=== PATIENT | male | born 1945 | race Caucasian/White ===

== ENCOUNTER 2016-11-14 13:17 | Inpatient (IN) | payer OTHER ==
[~2016-11-14] VITALS: Ht 185.4 cm; Wt 93.9 kg
[~2016-11-14 13:17] MED LIST: LRT5 PO
[2016-11-14] MEDS ORDERED: SODIUM CHLORIDE 0.9% 1000ML 1,000 ML IV STA (13:26)
[2016-11-14] MEDS ORDERED: ONDANSETRON INJ 2 MG/ML 2 ML VIAL IV STA (13:26)
[2016-11-14] MEDS ORDERED: MoRPHine SULFATE 4 MG/ML 1 ML CARP\\VIAL IV PRN (13:30)
--- NOTE | 2016-11-14 13:38 | EMERGENCY ROOM VISIT NOTE ---
History Report prepared by Lg: Gerardo Cabrales Under the Supervision of: Dr. Elpidio Russell D.O. First contact with patient: 13:20 Stated Complaint: FALL/ LF HIP PAIN History of Present Illness The patient is a 71 year old male who presents to the Emergency Room with complaints of left hip pain that began [employer]. He rates his pain a 2/10 in severity. At this time, the patient was climbing a ladder while balancing a light fixture on his head. He did this because he does not have full use of his right arm because of an injury at . He missed the second step of the ladder and fell horizontally onto his left side. He did not lose consciousness or hit his head. He denies any chest pain, neck pain, abdominal pain, back pain , head pain, or leg pain. He received 10 mg Morphine en route which helped his pain. Source of History: patient Onset: [employer] Position: other (Left hip) Symptom Intensity: 2/10 Quality: ache Timing: constant Modifying Factors (Worsening): movement Associated Symptoms: No LOC, No headache, No neck pain, No chest pain, No abdominal pain, No back pain Review of Systems See HPI for pertinent positives & negatives. A total of 10 systems reviewed and were otherwise negative. Past Medical & Surgical Medical Problems: (1) Hip fracture, left (2) No Known Active Medical Problems Family History Omitted secondary to the patient's age. Social History Smoking Status: Never Smoker Smokeless Tobacco Use: No Alcohol Use: occasionally Drug Use: none Marital Status: Housing Status: lives with significant other Occupation Status: retired Current/Historical Medications No Active Prescriptions or Reported Meds Allergies Coded Allergies: Oxycodone (Unverified Allergy, Unknown, neasua, trouble breathing, 11/14/16 ) Uncoded Allergies: NKDA (Allergy, Unknown, 09/23/04) Physical Exam Vital Signs Date Time Temp Pulse Resp B/P (MAP) Pulse Ox O2 Delivery O2 Flow Rate FiO2 11/14/16 15:25 72 152/87 Room Air 11/14/16 15:00 100 Room Air 11/14/16 13:50 70 150/84 100 11/14/16 13:23 36.6 79 18 150/84 100 Room Air Physical Exam GENERAL: Patient is awake, alert, and appears to be in significant pain. Patient is uncomfortably and showing moderate signs of anxiety. EYES: The conjunctivae are clear. The pupils are round and reactive. EARS, NOSE, MOUTH AND THROAT: The nose is without any evidence of any deformity. Mucous membranes are moist tongue is midline NECK: The neck is nontender and supple. RESPIRATORY: Normal respiratory effort is noted there is no evidence of wheezing rhonchi or rales CARDIOVASCULAR: Regular rate and rhythm noted there no murmurs rubs or gallops normal S1 normal S2 GASTROINTESTINAL: The abdomen is soft. Bowel sounds are present in all quadrants. Abdomen is nontender PELVIS: The Pelvis is stable. No tenderness to palpation is noted. BACK: No midline tenderness or or step-off noted range of motion in flexion extension as well as rotation no signs of muscle spasm noted MUSCULOSKELETAL/EXTREMITIES: LLE is shorted but not significantly rotated. Pain with any ROM with left hip. SKIN: There is no obvious evidence of any rash. There are no petechiae, pallor or cyanosis noted. Pulses symmetric, no pedal edema noted. NEUROLOGIC: Patient is awake alert and oriented x3. Medical Decision & Procedures ER Provider Diagnostic Interpretation: Radiology results as stated below per my review and radiologist interpretation: LEFT PELVIS/UNILATERAL HIP 2-3VIEWS CLINICAL HISTORY: Left hip pain following fall. COMPARISON: None FINDINGS: There is an acute comminuted impacted displaced left femoral neck fracture. There is no fracture of the proximal right femur. Sacroiliac joints and symphysis pubis are intact. IMPRESSION: Acute impacted displaced left femoral neck fracture. Electronically signed by: Juan C Dacosta M.D. 11/14/2016 2:38 PM Dictated Date/Time: 11/14/2016 2:37 PM CHEST 1 VW FRONT-NOT PORTABLE CLINICAL HISTORY: Fall. Left hip pain. COMPARISON STUDY: No previous studies for comparison. FINDINGS: There is no pneumothorax or pleural effusion. Pulmonary vascularity is normal. Cardiomediastinal silhouette is unremarkable. No consolidation is identified. IMPRESSION: No acute cardiopulmonary findings. Electronically signed by: Juan C Dacosta M.D. 11/14/2016 2:36 PM Dictated Date/Time: 11/14/2016 2:35 PM Laboratory Results 11/14/16 13:36 Red Blood Count 4.66, Mean Corpuscular Volume 88.8, Mean Corpuscular Hemoglobin 32.0, Mean Corpuscular Hemoglobin Concent 36.0, Mean Platelet Volume 9.3, Neutrophils (%) (Auto) 63.6, Lymphocytes (%) (Auto) 28.8, Monocytes (%) (Auto) 4.7, Eosinophils (%) (Auto) 2.1, Basophils (%) (Auto) 0.6, Neutrophils # (Auto) 4.17, Lymphocytes # (Auto) 1.89, Monocytes # (Auto) 0.31, Eosinophils # (Auto) 0.14, Basophils # (Auto) 0.04 11/14/16 13:36 Test 11/14/16 13:36 White Blood Count 6.56 K/uL (4.8-10.8) Red Blood Count 4.66 M/uL (4.7-6.1) Hemoglobin 14.9 g/dL (14.0-18.0) Hematocrit 41.4 % (42-52) Mean Corpuscular Volume 88.8 fL (80-100) Mean Corpuscular Hemoglobin 32.0 pg (25-34) Mean Corpuscular Hemoglobin Concent 36.0 g/dl (32-36) Platelet Count 217 K/uL (130-400) Mean Platelet Volume 9.3 fL (7.4-10.4) Neutrophils (%) (Auto) 63.6 % Lymphocytes (%) (Auto) 28.8 % Monocytes (%) (Auto) 4.7 % Eosinophils (%) (Auto) 2.1 % Basophils (%) (Auto) 0.6 % Neutrophils # (Auto) 4.17 K/uL (1.4-6.5) Lymphocytes # (Auto) 1.89 K/uL (1.2-3.4) Monocytes # (Auto) 0.31 K/uL (0.11-0.59) Eosinophils # (Auto) 0.14 K/uL (0-0.5) Basophils # (Auto) 0.04 K/uL (0-0.2) RDW Standard Deviation 41.1 fL (36.4-46.3) RDW Coefficient of Variation 12.8 % (11.5-14.5) Immature Granulocyte % (Auto) 0.2 % Immature Granulocyte # (Auto) 0.01 K/uL (0.00-0.02) Prothrombin Time 10.8 SECONDS (9.0-12.0) Prothromb Time International Ratio 1.0 (0.9-1.1) Activated Partial Thromboplast Time 25.0 SECONDS (21.0-31.0) Partial Thromboplastin Ratio 1.0 Anion Gap 8.0 mmol/L (3-11) Est Creatinine Clear Calc Drug Dose 80.1 ml/min Estimated GFR () 91.3 Estimated GFR (Non- 78.8 BUN/Creatinine Ratio 13.6 (10-20) Calcium Level 9.0 mg/dl (8.5-10.1) Total Bilirubin 0.9 mg/dl (0.2-1) Direct Bilirubin 0.2 mg/dl (0-0.2) Aspartate Amino Transf (AST/SGOT) 42 U/L (15-37) Alanine Aminotransferase (ALT/SGPT) 57 U/L (12-78) Alkaline Phosphatase 70 U/L (45-117) Troponin I < 0.015 ng/ml (0-0.045) Total Protein 7.1 gm/dl (6.4-8.2) Albumin 4.0 gm/dl (3.4-5.0) Hepatitis C Antibody Screen NEG (NEG) Laboratory results per my review. Medications Administered Medications (Trade) Dose Ordered Sig/Deb Route Start Time Stop Time Status Last Admin Dose Admin Sodium Chloride 1,000 ml @ 999 mls/hr Q1H1M STAT IV 11/14/16 13:26 11/14/16 14:26 DC 11/14/16 13:52 999 MLS/HR Morphine Sulfate (MoRPHine SULFATE INJ) 4 mg Q15M PRN IV 11/14/16 13:30 11/28/16 13:29 11/14/16 13:53 4 MG Ondansetron HCl (Zofran Inj) 4 mg NOW STAT IV 11/14/16 13:26 11/14/16 13:29 DC 11/14/16 13:52 4 MG ECG Indication: other (Trauma) Rate (beats per minute): 73 Rhythm: normal sinus Findings: no ectopy, other (no acute STS) Comparison ECG Date: no prior available ED Course 1320: The patient was evaluated in room A9. A complete history and physical examination were performed. 1326: Ordered Zofran Inj 4 mg IV, NSS 1,000 ml @ 999 mls/hr IV 1330: Ordered Morphine Sulfate 4 mg IV 1435: Upon reevaluation, the patient is resting. I discussed results and treatment plan with him. He verbalizes agreement and understanding. [facility] The patient will be evaluated by him for further management and care. 1513: I spoke with Dr. Hayward of [facility] at this time. We discussed the patient's case. He will evaluate the patient with Dr. Stevens. Medical Decision Differential diagnosis: Etiologies such as fracture, dislocation, intra-abdominal, pneumothorax, intrathoracic , intracranial, neurologic, as well as other traumatic pathologies were entertained. Nursing notes reviewed. The patient is a 71-year-old male who presented to emergency department for an evaluation after a fall. The patient suffered a left hip fracture. He was treated with IV fluids IV pain medicine IV antiemetics. I discussed the patient' s laboratory and radiographic studies with him. On subsequent reevaluation he was feeling somewhat improved. I discussed the patient's case with the on-call [facility]ist. I also discussed his case with the orthopedic physician of his choice. They've agreed to evaluate the patient for further management and disposition. Likely the patient will require surgical intervention. Medication Reconcilliation Current Medication List: was personally reviewed by me Blood Pressure Screening Patient's blood pressure: Elevated blood pressure Blood pressure disposition: Elevated BP felt to be situational Consults Time Called: 1430 Consulting Physician: Dr. Stevens - [facility] Returned Call: 1435 I discussed the patient's case with him. The patient will be evaluated for further management. Additional Consults: Time Called: 1510 Consulted Physician: Dr. Hayward - [facility] Returned Call: 1513 Additional Comments: We discussed the patient's case. He will evaluate the patient with Dr. Stevens. Impression Primary Impression: Fall Additional Impression: Intertrochanteric fracture of left hip Scribe Attestation The scribe's documentation has been prepared under my direction and personally reviewed by me in its entirety. I confirm that the note above accurately reflects all work, treatment, procedures, and medical decision making performed by me. Departure Information Dispostion Being Evaluated By Hospitalist Prescriptions No Active Prescriptions or Reported Meds Referrals No Doctor, Assigned (PCP) Problem Qualifiers Primary Impression: Fall Encounter type: initial encounter Qualified Codes: W19.XXXA - Unspecified fall, initial encounter Additional Impression: Intertrochanteric fracture of left hip Encounter type: initial encounter Fracture type: closed Fracture alignment : displaced Qualified Codes: S72.142A - Displaced intertrochanteric fracture of left femur, initial encounter for closed fracture
[2016-11-14 13:57] LABS: BASO % 0.6 %; BASO ABS # 0.04 K/uL (0-0.2); COMPLETE YES; EOS % 2.1 %; HEMATOCRIT 41.4 % (42-52); IG% 0.2 %; LYMPH % 28.8 %; LYMPH ABS # 1.89 K/uL (1.2-3.4); MEAN CELL VOLUME 88.8 fL (80-100); MEAN PLATELET VOLUME 9.3 fL (7.4-10.4); MONO % 4.7 %; NEUT % 63.6 %; PLATELET COUNT 217 K/uL (130-400); RED BLOOD COUNT 4.66 M/uL (4.7-6.1); WHITE BLOOD COUNT 6.56 K/uL (4.8-10.8)
[2016-11-14 14:14] LABS: PROTHROMBIN TIME (PATIENT) 10.8 SECONDS (9.0-12.0)
[2016-11-14 14:16] LABS: BUN/CREATININE RATIO 13.6 (10-20); CREATININE 0.97 mg/dl (0.60-1.40); POTASSIUM 3.9 mmol/L (3.5-5.1)
[2016-11-14 14:31] LABS: ALKALINE PHOSPHATASE 70 U/L (45-117); ALT/SGPT 57 U/L (12-78); AST/SGOT 42 U/L (15-37)
--- NOTE | 2016-11-14 14:38 | DIAGNOSTIC IMAGING REPORT ---
CHEST 1 VW FRONT-NOT PORTABLE CLINICAL HISTORY: Fall. Left hip pain. COMPARISON STUDY: No previous studies for comparison. FINDINGS: There is no pneumothorax or pleural effusion. Pulmonary vascularity is normal. Cardiomediastinal silhouette is unremarkable. No consolidation is identified. IMPRESSION: No acute cardiopulmonary findings. Electronically signed by: Juan C Dacosta M.D. 11/14/2016 2:36 PM Dictated Date/Time: 11/14/2016 2:35 PM
--- NOTE | 2016-11-14 14:39 | DIAGNOSTIC IMAGING REPORT ---
LEFT PELVIS/UNILATERAL HIP 2-3VIEWS CLINICAL HISTORY: Left hip pain following fall. COMPARISON: None FINDINGS: There is an acute comminuted impacted displaced left femoral neck fracture. There is no fracture of the proximal right femur. Sacroiliac joints and symphysis pubis are intact. IMPRESSION: Acute impacted displaced left femoral neck fracture. Electronically signed by: Juan C Dacosta M.D. 11/14/2016 2:38 PM Dictated Date/Time: 11/14/2016 2:37 PM
[2016-11-14 15:00] VITALS: O2SAT 100; Ht 185.4 cm; Wt 93.9 kg
[2016-11-14 16:38] LABS: URINE APPEARANCE CLEAR (CLEAR); URINE BILIRUBIN NEG (NEG); URINE COLOR YELLOW; URINE NITRITE NEG (NEG); URINE PH 8.5 (4.5-7.5); URINE SPECIFIC GRAVITY 1.014 (1.000-1.030); UROBILINOGEN NEG (NEG); ZZUR CULT IF INDIC CLEAN CATCH NO
[2016-11-14 16:41] LABS: MANUAL MICROSCOPIC REQUIRED? NO; REVIEW REQ? NO
[2016-11-14 17:30] VITALS: BP 149/85; PULSE 69; TEMP 36.8; O2SAT 97
--- NOTE | 2016-11-14 19:22 | History and Physical ---
History & Physical Date & Time of Service: Nov 14, 2016 at 15:36 Chief Complaint: Fall/ Lf Hip Pain Primary Care Physician: No Doctor, Assigned History of Present Illness Source: patient, spouse, clinic records, hospital records 71 year old male with no significant PMH presents to the Emergency Room with complaints of left hip pain after he had a fall. Pt said that he fell while he was climbing a ladder with a balancing light fixture on his head. he said that because of an injury at he had a short right arm.He said that He missed the second step of the ladder and fell on his left side. he said that he was unable to get up because when he trying to move his left hip was very tender. he said that he waited for about an hr until EMS came to get him out of the floor. He did not lose consciousness or hit his head. Pt said that he is very active. he said that this morning he walked the dog. He denies any chest pain, neck pain, palpitation, dizziness, sob, back pain, head pain. Social History Smoking Status: Never Smoker Smokeless Tobacco Use: No Drug Use: none Marital Status: Occupational Status: retired Multi-Drug Resistant Organisms History of MDRO: No Allergies Coded Allergies: Oxycodone (Unverified Allergy, Unknown, neasua, trouble breathing, 11/14/16 ) Uncoded Allergies: NKDA (Allergy, Unknown, 09/23/04) Home Medications No Active Prescriptions or Reported Meds Review of Systems Constitutional: No fever, No chills Eyes: No worsening of vision, No redness, No discharge ENT: No nasal symptoms, No sore throat Respiratory: No sputum, No wheezing, No shortness of breath Cardiovascular: No chest pain, No orthopnea, No palpitations Abdomen: No pain, No nausea, No vomiting Musculoskeletal: + problem reported (Left hip pain), No calf pain Genitourinary - Male: No hematuria, No dysuria Neurologic: No memory loss, No numbness/tingling Psychiatric: No substance abuse Endocrine: No fatigue Hematologic / Lymphatic: No night sweats Integumentary: No rash, No itch Physical Exam Vital Signs Date Time Temp Pulse Resp B/P (MAP) Pulse Ox O2 Delivery O2 Flow Rate FiO2 11/14/16 13:23 36.6 79 18 150/84 100 Room Air General Appearance: WD/WN, no apparent distress Head: normocephalic, atraumatic Eyes: normal inspection, PERRL, EOMI ENT: hearing grossly normal Neck: no adenopathy, no JVD Respiratory/Chest: lungs clear, normal breath sounds, no respiratory distress Cardiovascular: regular rate, rhythm, no edema, no JVD Abdomen/GI: normal bowel sounds, non tender, soft Back: normal inspection, no CVA tenderness Extremities/Musculoskelatal: no calf tenderness, no pedal edema Neurologic/Psych: alert, normal mood/affect, oriented x 3 Skin: normal color, warm/dry, no rash Diagnostics Laboratory Results Results Past 24 Hours Test 11/14/16 13:36 11/14/16 15:17 Range/Units White Blood Count 6.56 4.8-10.8 K/uL Red Blood Count 4.66 4.7-6.1 M/uL Hemoglobin 14.9 14.0-18.0 g/dL Hematocrit 41.4 42-52 % Mean Corpuscular Volume 88.8 80-100 fL Mean Corpuscular Hemoglobin 32.0 25-34 pg Mean Corpuscular Hemoglobin Concent 36.0 32-36 g/dl Platelet Count 217 130-400 K/uL Mean Platelet Volume 9.3 7.4-10.4 fL Neutrophils (%) (Auto) 63.6 % Lymphocytes (%) (Auto) 28.8 % Monocytes (%) (Auto) 4.7 % Eosinophils (%) (Auto) 2.1 % Basophils (%) (Auto) 0.6 % Neutrophils # (Auto) 4.17 1.4-6.5 K/uL Lymphocytes # (Auto) 1.89 1.2-3.4 K/uL Monocytes # (Auto) 0.31 0.11-0.59 K/uL Eosinophils # (Auto) 0.14 0-0.5 K/uL Basophils # (Auto) 0.04 0-0.2 K/uL RDW Standard Deviation 41.1 36.4-46.3 fL RDW Coefficient of Variation 12.8 11.5-14.5 % Immature Granulocyte % (Auto) 0.2 % Immature Granulocyte # (Auto) 0.01 0.00-0.02 K/uL Prothrombin Time 10.8 9.0-12.0 SECONDS Prothromb Time International Ratio 1.0 0.9-1.1 Activated Partial Thromboplast Time 25.0 21.0-31.0 SECONDS Partial Thromboplastin Ratio 1.0 Sodium Level 139 136-145 mmol/L Potassium Level 3.9 3.5-5.1 mmol/L Chloride Level 109 98-107 mmol/L Carbon Dioxide Level 22 21-32 mmol/L Anion Gap 8.0 3-11 mmol/L Blood Urea Nitrogen 13 7-18 mg/dl Creatinine 0.97 0.60-1.40 mg/dl Est Creatinine Clear Calc Drug Dose 80.1 ml/min Estimated GFR () 91.3 Estimated GFR (Non- 78.8 BUN/Creatinine Ratio 13.6 10-20 Random Glucose 95 70-99 mg/dl Calcium Level 9.0 8.5-10.1 mg/dl Total Bilirubin 0.9 0.2-1 mg/dl Direct Bilirubin 0.2 0-0.2 mg/dl Aspartate Amino Transf (AST/SGOT) 42 15-37 U/L Alanine Aminotransferase (ALT/SGPT) 57 12-78 U/L Alkaline Phosphatase 70 45-117 U/L Troponin I < 0.015 0-0.045 ng/ml Total Protein 7.1 6.4-8.2 gm/dl Albumin 4.0 3.4-5.0 gm/dl Diagnostic Radiology CHEST 1 VW FRONT-NOT PORTABLE CLINICAL HISTORY: Fall. Left hip pain. COMPARISON STUDY: No previous studies for comparison. FINDINGS: There is no pneumothorax or pleural effusion. Pulmonary vascularity is normal. Cardiomediastinal silhouette is unremarkable. No consolidation is identified. IMPRESSION: No acute cardiopulmonary findings. Electronically signed by: Juan C Dacosta M.D. 11/14/2016 2:36 PM Dictated Date/Time: 11/14/2016 2:35 PM LEFT PELVIS/UNILATERAL HIP 2-3VIEWS CLINICAL HISTORY: Left hip pain following fall. COMPARISON: None FINDINGS: There is an acute comminuted impacted displaced left femoral neck fracture. There is no fracture of the proximal right femur. Sacroiliac joints and symphysis pubis are intact. IMPRESSION: Acute impacted displaced left femoral neck fracture. Electronically signed by: Juan C Dacosta M.D. 11/14/2016 2:38 PM Impression Assessment and Plan Left Femoral Neck Fracture S/P Mechanical Fall Left Hip Xray showed acute impacted displaced left femoral neck fracture Pain control with morphine case discussed with Dr. Hayward that plan for hip surgery tomorrow Pt said that he is very active. PT has a functional status with a METS greater than a 4. Will undergo an intermediate risk procedure Denies any chest pain, palpitation, dizziness and SOB Pt is medically stable to proceed for surgery. risks briefly discussed with patient such as blood loss, infection, thrombosis, sepsis and even Surgical risks will be discussed in detail by the orthopedic surgeon Will keep NPO after Midnight DVT Px on SCDS CODE STATUS FULL CODE Level of Care Med/Surg Advanced Directives Existing Living Will: Yes Existing Power of Pet Caregiver: Yes VTE Prophylaxis VTE Risk Assessment Done? Y/N: Yes Risk Level: Moderate Given or contraindicated: SCD's
[2016-11-14] MEDS: MoRPHine SULFATE 4 MG/ML 1 ML CARP\\VIAL IV PRN (20:55)
[2016-11-14 22:50] VITALS: BP 109/69; PULSE 76; TEMP 37.2; O2SAT 96
[2016-11-14] MEDS: ACETAMINOPHEN 325 MG TAB PO PRN (23:45)
[2016-11-15] VITALS (8 sets, daily range): BP systolic 112–135; BP diastolic 69–86; PULSE 56–76; TEMP 36.4–37.3; O2SAT 95–99
[2016-11-15] MEDS: MoRPHine SULFATE 4 MG/ML 1 ML CARP\\VIAL IV PRN ×3 (01:06→09:57)
--- NOTE | 2016-11-15 09:15 | ORTHOPEDIC CONSULTATION ---
DATE OF CONSULTATION: 11/15/2016 CHIEF COMPLAINT: Left femoral neck fracture. HISTORY OF PRESENT ILLNESS: Abdulkadir is a pleasant 71-year-old male who lives in a house with his . He is an independent ambulator and yesterday he was up on a ladder, fixing a light bulb when he fell off the ladder onto his left hip. He had severe left hip pain. EMS came to the house and brought to the Emergency Room. Radiographs demonstrated a left femoral neck fracture. He was admitted to the hospitalist service. Orthopedics was consulted to evaluate and treat. PAST MEDICAL HISTORY: Denies. PAST SURGICAL HISTORY: None. ALLERGIES: OXYCODONE. FAMILY HISTORY: Noncontributory. SOCIAL HISTORY: He is , is an independent ambulator without assistance. REVIEW OF SYSTEMS: He complains of left hip and groin pain. All other pertinent review of systems are negative. PHYSICAL EXAMINATION: LEFT LEG: His left leg is shortened and externally rotated. He has a lot of pain with log roll of his left hip. He has active dorsiflexion and plantarflexion of his ankle. Sensation is intact. There are no abrasions, lesions, lacerations around the skin. X-rays are reviewed, do show a low femoral neck fracture. He seems to extend a little bit into the intertrochanteric region. IMPRESSION: Left femoral neck fracture. PLAN: I talked with him extensively at bedside. This is a fracture that is best treated with a hip hemiarthroplasty. I discussed the procedure with him at bedside today. He is currently n.p.o. and we will go ahead and fix his hip later this morning. He will likely be started on aspirin for DVT prophylaxis postoperatively and we will follow him closely.
[2016-11-15] MEDS ORDERED: SODIUM CHLORIDE 0.9% 1000ML 1,000 ML IV SCH (10:00)
[2016-11-15] MEDS ORDERED: BACITRACIN 50000 UNIT VIAL ONE (10:14)
[2016-11-15] MEDS ORDERED: HYDROmorphone INJ 1 MG/ML SYR IV PRN (10:15)
[2016-11-15] MEDS ORDERED: ONDANSETRON INJ 2 MG/ML 2 ML VIAL IV PRN (10:15)
[2016-11-15] MEDS ORDERED: MEPERIDINE HCL 25 MG/ML CARP IV PRN (10:15)
[2016-11-15] MEDS ORDERED: LABETALOL HCL IV 5 MG/ML 20ML IV PRN (10:15)
[2016-11-15] MEDS ORDERED: EpHEDrine SULFATE INJ 50 MG/ML AMP IV PRN (10:15)
[2016-11-15] MEDS ORDERED: ATROPINE SULFATE 0.1 MG/ML 5ML SYR IV PRN (10:15)
--- NOTE | 2016-11-15 10:29 | Progress Note ---
Medicine Progress Note Date & Time of Visit: Nov 15, 2016 at 10:19. Subjective Pt was seen and examined Lying at bedside with no distress Pt said that he does have intermittent left hip pain mostly when moving his L extremity He said that the morphine helps with the pain denies any chest pain, palpitation, dizziness and SOB Objective Last 8 Hrs Date Time Temp Pulse Resp B/P (MAP) Pulse Ox O2 Delivery O2 Flow Rate FiO2 11/15/16 07:40 37.3 76 16 131/83 (99) 96 Room Air 11/15/16 07:15 Room Air Physical Exam: General- No acute distress, very pleasant Head- atraumatic Eyes- PERRL, EOMI ENT- oropharynx clear Neck- supple, no JVD Lungs- clear to auscultation Heart- regular rhythm; no murmur Abdomen- normal bowel sounds, soft Extremities- no calf tenderness, Left hip tenderness Neuro- alert, oriented x 3; PERRL, EOMI; no facial palsy Skin- warm & dry Laboratory Results: Last 24 Hours Test 11/14/16 13:36 11/14/16 16:20 White Blood Count 6.56 K/uL Red Blood Count 4.66 M/uL Hemoglobin 14.9 g/dL Hematocrit 41.4 % Mean Corpuscular Volume 88.8 fL Mean Corpuscular Hemoglobin 32.0 pg Mean Corpuscular Hemoglobin Concent 36.0 g/dl Platelet Count 217 K/uL Mean Platelet Volume 9.3 fL Neutrophils (%) (Auto) 63.6 % Lymphocytes (%) (Auto) 28.8 % Monocytes (%) (Auto) 4.7 % Eosinophils (%) (Auto) 2.1 % Basophils (%) (Auto) 0.6 % Neutrophils # (Auto) 4.17 K/uL Lymphocytes # (Auto) 1.89 K/uL Monocytes # (Auto) 0.31 K/uL Eosinophils # (Auto) 0.14 K/uL Basophils # (Auto) 0.04 K/uL RDW Standard Deviation 41.1 fL RDW Coefficient of Variation 12.8 % Immature Granulocyte % (Auto) 0.2 % Immature Granulocyte # (Auto) 0.01 K/uL Prothrombin Time 10.8 SECONDS Prothromb Time International Ratio 1.0 Activated Partial Thromboplast Time 25.0 SECONDS Partial Thromboplastin Ratio 1.0 Sodium Level 139 mmol/L Potassium Level 3.9 mmol/L Chloride Level 109 mmol/L Carbon Dioxide Level 22 mmol/L Anion Gap 8.0 mmol/L Blood Urea Nitrogen 13 mg/dl Creatinine 0.97 mg/dl Est Creatinine Clear Calc Drug Dose 80.1 ml/min Estimated GFR () 91.3 Estimated GFR (Non- 78.8 BUN/Creatinine Ratio 13.6 Random Glucose 95 mg/dl Calcium Level 9.0 mg/dl Total Bilirubin 0.9 mg/dl Direct Bilirubin 0.2 mg/dl Aspartate Amino Transf (AST/SGOT) 42 U/L Alanine Aminotransferase (ALT/SGPT) 57 U/L Alkaline Phosphatase 70 U/L Troponin I < 0.015 ng/ml Total Protein 7.1 gm/dl Albumin 4.0 gm/dl Hepatitis C Antibody Screen NEG Urine Color YELLOW Urine Appearance CLEAR Urine pH 8.5 Urine Specific [place] 1.014 Urine Protein NEG Urine Glucose (UA) NEG Urine Ketones TRACE Urine Occult Blood NEG Urine Nitrite NEG Urine Bilirubin NEG Urine Urobilinogen NEG Urine Leukocyte Esterase NEG Assessment & Plan Left Femoral Neck Fracture S/P Mechanical Fall Left Hip Xray showed acute impacted displaced left femoral neck fracture Pain control with morphine case discussed with Dr. Hayward that plan for hip surgery today Pt said that he is very active and was ambulating without assistance. PT has a functional status with a METS greater than a 4. Will undergo an intermediate risk procedure Denies any chest pain, palpitation, dizziness and SOB Pt is medically stable to proceed for surgery. risks briefly discussed with patient such as blood loss, infection, thrombosis, sepsis and even Surgical risks will be discussed in detail by the orthopedic surgeon Continue NPO for surgery today Start on IVF Ortho on board Plan for Left hip hemiarthroplasty DVT Px on SCDS for now CODE STATUS FULL CODE Consultants: Ortho Current Inpatient Medications: Current Inpatient Medications Medications (Trade) Dose Ordered Sig/Deb Route Start Time Stop Time Status Last Admin Dose Admin Acetaminophen (Tylenol Tab) 650 mg Q4H PRN PO 11/14/16 15:30 12/14/16 15:29 11/14/16 23:45 650 MG Morphine Sulfate (MoRPHine SULFATE INJ) 3 mg Q4HWA PRN IV 11/14/16 15:30 11/28/16 15:29 11/15/16 09:57 3 MG Ondansetron HCl (Zofran Inj) 4 mg Q6H PRN IV 11/15/16 10:00 12/15/16 09:59 Sodium Chloride 1,000 ml @ 75 mls/hr [id number] IV 11/15/16 10:00 11/15/16 23:19 11/15/16 10:07 75 MLS/HR Fentanyl Citrate (Fentanyl Inj) 50 mcg Q5M PRN IV 11/15/16 10:15 11/15/16 15:15 Hydromorphone HCl (Dilaudid Inj) 0.5 mg Q5M PRN IV 11/15/16 10:15 11/15/16 15:15 Meperidine HCl (Demerol Inj) 25 mg Q5M PRN IV 11/15/16 10:15 11/15/16 15:15 Ondansetron HCl (Zofran Inj) 4 mg ONE PRN IV 11/15/16 10:15 11/15/16 15:15 Labetalol HCl (Normodyne IV) 5 mg Q5M PRN IV 11/15/16 10:15 11/15/16 15:15 Ephedrine Sulfate (EpHEDrine SULFATE INJ) 5 mg Q5M PRN IV 11/15/16 10:15 11/15/16 15:15 Atropine Sulfate (Atropine Sulfate 0.1MG/Ml Inj) 0.5 mg Q1M PRN IV 11/15/16 10:15 11/15/16 15:15
[2016-11-15] MEDS ORDERED: MIDAZOLAM HCL 1 MG/ML 2ML VIAL ONE (10:32)
[2016-11-15] MEDS ORDERED: FENTANYL CITRATE INJ 50 MCG/1 ML 2 ML VIAL ONE ×2 (10:33→13:28)
[2016-11-15] MEDS ORDERED: KETAMINE HCL INJ 50 MG/ML 10 ML VIAL ONE (10:54)
[2016-11-15] MEDS ORDERED: ROPIVACAINE 5MG/ML 30 ML 150 MG, BUPIVACAINE/EPINEPHR 0.5% MPF 30 ML, KETOROLAC TROMETH... INFIL SCH ×7 (11:00)
[2016-11-15] MEDS ORDERED: CEFAZOLIN SOD 1 GM VIAL ONE (11:20)
[2016-11-15] MEDS ORDERED: PROPOFOL IV EMULSION 10 MG/ML 20 ML VIAL IV ONE ×2 (12:10)
[2016-11-15] MEDS ORDERED: ONDANSETRON INJ 2 MG/ML 2 ML VIAL ONE (12:11)
[2016-11-15] MEDS ORDERED: LIDOCAINE HCL 2% 2 ML VIAL (20MG/ML) ONE (12:11)
--- NOTE | 2016-11-15 12:13 | DIAGNOSTIC IMAGING REPORT ---
SINGLE VIEW PELVIS CLINICAL HISTORY: Intraoperative radiograph FINDINGS: An AP portable view of the hips and lower pelvis is compared to study dated 11/14/2016. The skeletal structures are osteopenic. A left hip arthroplasty is in near-anatomic alignment. No acute fracture is seen. Mild arthritic change is noted in the right hip. Numerous phleboliths are seen in the pelvis. Soft tissue edema overlies left hip. IMPRESSION: A left hip arthroplasty is in near-anatomic alignment. Electronically signed by: Julito Eaton M.D. 11/15/2016 12:12 PM Dictated Date/Time: 11/15/2016 12:10 PM
--- NOTE | 2016-11-15 13:09 | [facility] Post Operative Brief Note ---
Immediate Operative Summary Operative Date Nov 15, 2016. Pre-Operative Diagnosis Left femoral neck fracture Post-Operative Diagnosis Left femoral neck fracture Procedure(s) Performed Left Bipolar Hip Prosthesis Surgeon Dr. Hayward Colon Therapist Surgeon(s) Dontae Mederos PA-C Estimated Blood Loss 250cc Findings as above Specimens A. Left femoral head Complication(s) None Disposition Recovery Room / PACU
[2016-11-15] MEDS ORDERED: HYDROmorphone HCL 2 MG TAB PO PRN (13:15)
[2016-11-15] MEDS ORDERED: HYDROmorphone INJ 0.5 MG/0.5 ML SYR IV PRN (13:15)
[2016-11-15] MEDS ORDERED: SOD PHOSPHATE/SOD BIPHOSPHATE ENEMA 132 ML BTL PR PRN (13:15)
[2016-11-15] MEDS ORDERED: MAGNESIUM HYDROXIDE SUSP 30 ML UDC PO PRN (13:15)
[2016-11-15] MEDS ORDERED: BISACODYL 10 MG SUPP PR PRN (13:15)
[2016-11-15] MEDS: FENTANYL CITRATE INJ 50 MCG/1 ML 2 ML VIAL IV PRN ×2 (13:29→13:34)
--- NOTE | 2016-11-15 13:58 | Anesthesiology Progress Note ---
Anesthesia Post Op Note Date & Time Nov 15, 2016 at 13:57 Vital Signs Pain Intensity: 0 Vital Signs Past 12 Hours Date Time Temp Pulse Resp B/P (MAP) Pulse Ox O2 Delivery O2 Flow Rate FiO2 11/15/16 13:50 37.5 56 14 113/71 98 Nasal Cannula 2 11/15/16 13:40 54 14 126/73 100 Nasal Cannula 2 11/15/16 13:30 54 14 136/83 100 Mask 10 11/15/16 13:20 54 14 127/87 100 Mask 10 11/15/16 13:10 62 14 127/76 100 Mask 10 11/15/16 13:04 36.1 60 14 125/88 99 Mask 10 11/15/16 07:40 37.3 76 16 131/83 (99) 96 Room Air 11/15/16 07:15 Room Air Notes Mental Status: alert / awake / arousable, participated in evaluation Pt Amnestic to Procedure: Yes Nausea / Vomiting: adequately controlled Pain: adequately controlled Airway Patency, RR, SpO2: stable & adequate BP & HR: stable & adequate Hydration State: stable & adequate Neuraxial Anesthesia: was administered, sensory block is resolving Anesthetic Complications: no major complications apparent
--- NOTE | 2016-11-15 14:12 | DIAGNOSTIC IMAGING REPORT ---
LEFT HIP 2 VIEWS CLINICAL HISTORY: Postoperative examination. FINDINGS: AP and crosstable lateral portable views of left hip are compared to study dated 11/14/2016. The skeletal structures are osteopenic. A unipolar left hip arthroplasty is in near-anatomic alignment. No acute fracture is seen. The visualized left hemipelvis appears intact. There are expected postoperative findings overlying the left including skin clips, a surgical drain, subcutaneous gas, and soft tissue swelling. Pelvic phlebolith are noted. IMPRESSION: Expected postoperative findings status post left hip arthroplasty. No fracture is seen. Electronically signed by: Julito Eaton M.D. 11/15/2016 2:11 PM Dictated Date/Time: 11/15/2016 2:09 PM
[2016-11-15] MEDS: LACTATED RINGER'S 1000ML 1,000 ML IV SCH ×2 (14:27→23:32)
--- NOTE | 2016-11-15 17:59 | OPERATIVE REPORT ---
DATE OF OPERATION: 11/15/2016 PREOPERATIVE DIAGNOSIS: Left femoral neck fracture. POSTOPERATIVE DIAGNOSIS: Same. PROCEDURE: Cemented left hip hemiarthroplasty. SURGEON: Dr. Thompson Hayward. SUPERVISOR INSPECTION: Babak Mederos PA-C, whose assistance was necessary for retraction and positioning the leg. ANESTHESIA: Spinal. COMPLICATIONS: None. CONDITION: Stable to PACU. IMPLANTS USED: I used a Biomet generation 4 cemented stem with a size 11 standard femoral stem, a size 50 bipolar cup and the stem was cemented with Palacos-G cement. INDICATIONS: Abdulkadir is a 71-year-old male who was working on a ladder yesterday when he fell directly onto his left hip. He was brought to the Emergency Room, radiographs demonstrated a very low femoral neck fracture. It appeared to extend a little bit into the calcar. After discussions with him and his , they elected to proceed with a hip hemiarthroplasty. OPERATION AND FINDINGS: On 11/15/2016, he was brought down from his hospital room and seen in the preoperative holding area and the operative extremity was identified and signed. He was given a spinal anesthetic and preoperative antibiotics. He was taken back to the operating room, laid on the table in supine position and given basic sedation. He was then put in the lateral decubitus position. The left hip was prepped and draped in sterile fashion. Time-out was done and the patient and operative extremity was properly identified. A lateral approach was used. Dissection was taken down through the fascia and the abductors were exposed. The anterior third of the abductors were tenotomized off the greater trochanter. The capsule was visualized and excised. The femoral head was then removed in piecemeal fashion with care not to cause any further fracture. The acetabulum was cleaned out and the femoral head measured to be a size 50. The proximal femur was then exposed. The neck cut was then freshened up and sequential broaching up to a size 11 broach was done. A size 50 bipolar cup was trialed and the hip was reduced, brought through a full range of motion and felt to be stable. A single flat plate x-ray of the pelvis was taken and I was happy with the standard offset as well as the leg length. The hip was then dislocated, a final size 11 implant was then cemented into place with Palacos-G cement. I was actually able to get a very good fit. The cortical disruption on the calcar was much less intraoperatively than appeared on the x-rays. The final size 50 bipolar head was impacted into place, the hip was reduced, brought through a full range of motion and felt to be stable. The abductors were then tenodesed back to the greater trochanter with transosseous FiberWire sutures and [id number] sutures. The surrounding soft tissues were then injected with the orthopedic pain control cocktail. The hip was then irrigated with 3 liters of normal saline solution with bacitracin. Two drains were placed. The fascia was closed with #1 PDS suture and skin was closed with 3-0 Vicryl and pb. He was then placed in a soft dressing and taken to the postanesthesia care unit in stable condition. He tolerated the procedure well. I attest to the content of the Intraoperative Record and any orders documented therein. Any exception s are noted below.
[2016-11-15] MEDS: CEFAZOLIN IV 2,000 MG in DEXTROSE 5% 50ML 50 ML IV SCH (20:24)
[2016-11-15] MEDS: DOCUSATE SODIUM/SENNA 50/8.6MG TAB PO SCH (21:12)
[2016-11-15] MEDS: ACETAMINOPHEN 325 MG TAB PO PRN (21:12)
[2016-11-16] MEDS: ASPIRIN/ALUM/MAGNES/CAL CARB 325 MG TAB PO SCH ×3 (00:59→20:35)
[2016-11-16] MEDS: CEFAZOLIN IV 2,000 MG in DEXTROSE 5% 50ML 50 ML IV SCH (03:37)
[2016-11-16 04:06] VITALS: BP 120/71; PULSE 70; TEMP 36.6; O2SAT 96
[2016-11-16] MEDS ORDERED: NURSING VERBAL MED ORDER ONE (06:15)
[2016-11-16 06:16] LABS: MEAN CELL VOLUME 90.7 fL (80-100); MEAN CORPUSCULAR HEMOGLOBIN 31.2 pg (25-34); MEAN CORPUSCULAR HGB CONC 34.4 g/dl (32-36); MEAN PLATELET VOLUME 9.2 fL (7.4-10.4); PLATELET COUNT 183 K/uL (130-400); RED BLOOD COUNT 3.97 M/uL (4.7-6.1)
[2016-11-16 06:47] LABS: BUN/CREATININE RATIO 13.6 (10-20); CALCIUM 8.4 mg/dl (8.5-10.1); POTASSIUM 4.2 mmol/L (3.5-5.1)
[2016-11-16 06:53] VITALS: BP 105/70; PULSE 77; TEMP 36.7; O2SAT 97
[2016-11-16 07:50] VITALS: O2SAT 97
[2016-11-16] MEDS: ACETAMINOPHEN 325 MG TAB PO PRN ×3 (08:03→20:36)
[2016-11-16] MEDS: HYDROmorphone INJ 0.5 MG/0.5 ML SYR IV PRN ×2 (09:10→21:45)
--- NOTE | 2016-11-16 10:22 | PROGRESS NOTE ---
DATE: 11/16/2016 CHIEF COMPLAINT: Status post left hip hemiarthroplasty, postop day #1. PROGRESS: Abdulkadir was seen and examined at bedside today. Overall, he is doing fairly well. He was up and ambulating some in the room late last night. He had a lot of soreness in the hip. He was able to sit at the edge of the bed for a little while, but after sitting for a while, he began having soreness as well. Aside from the hip pain, he has no other complaints. PHYSICAL EXAMINATION: LEFT HIP: The dressing is clean and dry. His leg lengths are equal. He has active dorsiflexion and plantarflexion of his left ankle. Sensation is intact. LABORATORY DATA: Show an H&H of 12.4 and 36.0. His glucose is 120. VITAL SIGNS: All stable on room air. He has a urinary catheter. IMAGING DATA: X-rays postoperatively of the left hip show the prosthesis to be in near anatomic alignment without any evidence of fracture, dislocation or loosening. IMPRESSION: Status post cemented left hip hemiarthroplasty, postop day #1. PLAN: At this point, he is doing as well as expected. He is looking to be discharged to [facility] in couple days. We will continue to work on getting him up and ambulating with physical therapy. I will follow him closely while he is in the hospital. He is on aspirin 325 mg twice a day for DVT prophylaxis. ABELINO
--- NOTE | 2016-11-16 15:15 | Progress Note ---
Medicine Progress Note Date & Time of Visit: Nov 16, 2016 at 15:07. Subjective Pt was seen and examined Lying in bed with no distress with at bedside Pt said that he feels much better today He said that his pain is better denies any chest pain, palpitation, dizziness and SOB Objective Last 8 Hrs Date Time Temp Pulse Resp B/P (MAP) Pulse Ox O2 Delivery O2 Flow Rate FiO2 11/16/16 07:50 97 Room Air Physical Exam: General- No acute distress, very pleasant Head- atraumatic Eyes- PERRL, EOMI ENT- oropharynx clear Neck- supple, no JVD Lungs- clear to auscultation Heart- regular rhythm; no murmur Abdomen- normal bowel sounds, soft Extremities- no calf tenderness Neuro- alert, oriented x 3; PERRL, EOMI; no facial palsy Skin- warm & dry Laboratory Results: Last 24 Hours Test 11/16/16 05:48 White Blood Count 11.20 K/uL Red Blood Count 3.97 M/uL Hemoglobin 12.4 g/dL Hematocrit 36.0 % Mean Corpuscular Volume 90.7 fL Mean Corpuscular Hemoglobin 31.2 pg Mean Corpuscular Hemoglobin Concent 34.4 g/dl RDW Standard Deviation 43.2 fL RDW Coefficient of Variation 12.9 % Platelet Count 183 K/uL Mean Platelet Volume 9.2 fL Sodium Level 138 mmol/L Potassium Level 4.2 mmol/L Chloride Level 106 mmol/L Carbon Dioxide Level 25 mmol/L Anion Gap 7.0 mmol/L Blood Urea Nitrogen 14 mg/dl Creatinine 1.00 mg/dl Est Creatinine Clear Calc Drug Dose 77.7 ml/min Estimated GFR () 88.0 Estimated GFR (Non- 75.9 BUN/Creatinine Ratio 13.6 Random Glucose 120 mg/dl Calcium Level 8.4 mg/dl Assessment & Plan Left Femoral Neck Fracture S/P Mechanical Fall Left Hip Xray showed acute impacted displaced left femoral neck fracture Pain control with morphine case discussed with Dr. Hayward that plan for hip surgery today Pt said that he is very active and was ambulating without assistance. PT has a functional status with a METS greater than a 4. Will undergo an intermediate risk procedure Denies any chest pain, palpitation, dizziness and SOB Pt is medically stable to proceed for surgery. risks briefly discussed with patient such as blood loss, infection, thrombosis, sepsis and even Surgical risks will be discussed in detail by the orthopedic surgeon Continue NPO for surgery today Start on IVF Ortho on board Plan for Left hip hemiarthroplasty 11/16 S/P day#1 Cemented left hip hemiarthroplasty. Continue pain control incentive spirometry PT/OT DVT Px on SCDS CODE STATUS FULL CODE Consultants: Ortho Current Inpatient Medications: Current Inpatient Medications Medications (Trade) Dose Ordered Sig/Deb Route Start Time Stop Time Status Last Admin Dose Admin Acetaminophen (Tylenol Tab) 650 mg Q4H PRN PO 11/14/16 15:30 12/14/16 15:29 11/16/16 08:03 650 MG Ondansetron HCl (Zofran Inj) 4 mg Q6H PRN IV 11/15/16 10:00 12/15/16 09:59 Aspirin/Aluminum/ Magnesium/Ca Carb (Ascriptin Tab) 325 mg BID PO 11/16/16 01:00 12/16/16 00:59 11/16/16 09:13 325 MG Hydromorphone HCl (Dilaudid Inj) 0.25 mg Q20M PRN IV 11/15/16 13:15 11/29/16 13:14 Hydromorphone HCl (Dilaudid Inj) 0.5 mg Q20M PRN IV 11/15/16 13:15 11/29/16 13:14 11/16/16 09:10 0.5 MG Senna/Docusate Sodium (Senokot S Tab) 2 tab HS PO 11/15/16 21:00 12/15/16 20:59 11/15/16 21:12 2 TAB Polyethylene (Miralax Powder Packet) 17 gm Q6 PO 11/17/16 06:00 12/17/16 05:59 Magnesium Hydroxide (Milk Of Magnesia Susp) 30 ml DAILY PRN PO 11/15/16 13:15 12/15/16 13:14 Bisacodyl (Dulcolax Supp) 10 mg DAILY PRN ND 11/15/16 13:15 12/15/16 13:14 Sodium Biphosphate/ Sodium Phosphate (Fleet Enema) 132 ml ONE PRN ND 11/15/16 13:15 12/15/16 13:14 Hydromorphone HCl (Dilaudid Tab) 2 mg Q4HWA PRN PO 11/15/16 13:15 11/29/16 13:14
[2016-11-16 15:19] VITALS: BP 123/78; PULSE 80; TEMP 36.6; O2SAT 97
[2016-11-16] MEDS: ONDANSETRON INJ 2 MG/ML 2 ML VIAL IV PRN (15:59)
[2016-11-16] MEDS: DOCUSATE SODIUM/SENNA 50/8.6MG TAB PO SCH (22:22)
[2016-11-16 22:43] VITALS: BP 126/73; PULSE 76; TEMP 36.7; O2SAT 97
[2016-11-17] VITALS (7 sets, daily range): BP systolic 118–137; BP diastolic 70–86; PULSE 67–87; TEMP 36.7–37; O2SAT 96–100
[2016-11-17] MEDS: POLYETHYLENE (MIRALAX) 17 GM PACK PO SCH ×3 (05:42→19:23)
[2016-11-17] MEDS ORDERED: ACETAMINOPHEN IV 1,000 MG in EMPTY BAG 0 ML IV ONE (07:30)
[2016-11-17 07:40] LABS: BASO % 0.4 %; BASO ABS # 0.04 K/uL (0-0.2); COMPLETE YES; EOS % 4.8 %; IG% 0.4 %; LYMPH % 30.6 %; LYMPH ABS # 3.45 K/uL (1.2-3.4); MEAN CELL VOLUME 90.7 fL (80-100); MEAN CORPUSCULAR HEMOGLOBIN 31.5 pg (25-34); MEAN CORPUSCULAR HGB CONC 34.7 g/dl (32-36); MEAN PLATELET VOLUME 9.2 fL (7.4-10.4); NEUT % 53.8 %; PLATELET COUNT 201 K/uL (130-400); RED BLOOD COUNT 3.97 M/uL (4.7-6.1); WHITE BLOOD COUNT 11.28 K/uL (4.8-10.8)
--- NOTE | 2016-11-17 07:40 | PROGRESS NOTE ---
DATE: 11/17/2016 CHIEF COMPLAINT: Status post left hip arthroplasty postop day #2. PROGRESS: I came in the room this morning to see Brendan; he was just getting back from the bathroom with physical therapy. He sat down in his chair and I went to talk to him and then he became unresponsive. A code dianne was called. The nursing staff came into the room followed by the internal medicine physicians. He was laid in Trendelenburg position and he became responsive. The medical team was continuing to work with him. PHYSICAL EXAMINATION: I was unable to get any examination of his hip. He needs to be worked up by the medical team for now. He is currently lying in Trendelenburg position, but he was awake and alert and oriented. IMPRESSION: Status post left hip hemiarthroplasty, postop day #2. PLAN: He worked some yesterday with physical therapy, but he was slow to ambulate. He walked about 60 feet. He also fatigued quickly. information services tech has been talking with him and we are looking at placement at [facility] in the near future. The medical team will continue to work on this latest episode and I will follow him closely for his hip.
[2016-11-17 08:03] LABS: ALT/SGPT 36 U/L (12-78); BLOOD UREA NITROGEN 15 mg/dl (7-18); BUN/CREATININE RATIO 13.9 (10-20); CALCIUM 8.6 mg/dl (8.5-10.1); CARBON DIOXIDE 27 mmol/L (21-32); CHLORIDE 107 mmol/L (98-107); GLUCOSE 135 mg/dl (70-99); POTASSIUM 3.8 mmol/L (3.5-5.1); SODIUM 141 mmol/L (136-145)
[2016-11-17 08:09] LABS: ALKALINE PHOSPHATASE 61 U/L (45-117); AST/SGOT 38 U/L (15-37); CKMB/CK RATIO 0.8 (0-3.0); THYROID STIMULATING HORMONE 0.726 uIu/ml (0.300-4.500)
[2016-11-17] MEDS: ASPIRIN/ALUM/MAGNES/CAL CARB 325 MG TAB PO SCH ×2 (08:36→21:29)
--- NOTE | 2016-11-17 08:50 | Critical Care Progress Note ---
Critical Care Progress Note Date of Service Nov 17, 2016. Critical Care Progress Note Code Renard was called just after 0700 to the patient's room. Upon arrival, the patient was positioned in the Trendelenburg position. He was pale and diaphoretic. Patient was A&Ox4. The patient describes and episode of intense pain while ambulating back from the restroom. The pain was immediately followed by tunneling vision and intense nausea. He was placed in the bed and had an episode of snoring respirations with unresponsiveness lasting several seconds. He continues to complain of pain to the LEFT hip with associated lightheadedness. EXAM: VITAL SIGNS - Vital signs and nursing notes were reviewed. GENERAL - 71-year-old male appearing his stated age who is in pale and diaphoretic on exam. Communicates well with provider and answers questions appropriately. LUNGS - Chest wall symmetric without accessory muscle use, intercostals retractions, or central cyanosis. Normal vesicular breath sounds CTA B/L. No wheezes, rales, or rhonchi appreciated. CARDIAC - RRR with S1/S2. No murmur, rubs, or gallops appreciated. No reproducible tenderness to palpation appreciated over the anterior chest wall. ABDOMEN - Abdominal contour flat and without pulsations or visible masses. BS normoactive all four quadrants. No tenderness, palpable masses, hepatosplenomegaly, or ascites noted. NEUROLOGIC - Cranial nerves II through XII grossly intact. Sensory intact to light touch throughout. PSYCH - A&Ox3 and cooperates fully with examiner. Pt is very pleasant and interacts well with examiner. The patient's heart rate was initially found to be in the low 50's. On review of his record, he had relative hypotension from his baseline as well (100s/70s) . Patient was provided cool washcloths. EKG was obtained and reviewed by myself from prior and demonstrates no acute ST/T-wave abnormalities with a persistent incomplete RBBB per my interpretation. As the evaluation progressed, the patient 's blood pressure normalized and heart rate escalated to the 70's which appears to be the patient's baseline. The patient feels much better at this time. Neurologically, a brief exam was unremarkable. His only complaint is persistent pain the the LEFT Hip. Patient's primary team did present and placed formal orders for nursing staff. The patient likely experienced a vasovagal episode of described full syncope secondary to pain response with delayed return of baseline 2/2 to recent narcotic use. Continued management per patients primary medical service and orthopedist.
[2016-11-17] MEDS: ONDANSETRON INJ 2 MG/ML 2 ML VIAL IV PRN (13:51)
[2016-11-17] MEDS: ACETAMINOPHEN 325 MG TAB PO PRN ×2 (15:51→19:30)
--- NOTE | 2016-11-17 19:56 | Progress Note ---
Medicine Progress Note Date & Time of Visit: Nov 17, 2016 at 19:51. Subjective Pt was seen and examined sitting in bed with no distress Pt had a code people early this morning after he was unresponsive for about 10 sec Pt said that he was in severe pain in his hip before that happened he said that he usually fainting when he is in severe pain now he is feeling much better denies any chest pain, palpitation, dizziness and sob Objective Last 8 Hrs Date Time Temp Pulse Resp B/P (MAP) Pulse Ox O2 Delivery O2 Flow Rate FiO2 11/17/16 15:20 36.7 87 18 137/80 (99) 98 Room Air 11/17/16 13:55 73 18 135/80 (98) 98 Room Air Physical Exam: General- No acute distress, very pleasant Head- atraumatic Eyes- PERRL, EOMI ENT- oropharynx clear Neck- supple, no JVD Lungs- clear to auscultation Heart- regular rhythm; no murmur Abdomen- normal bowel sounds, soft Extremities- no calf tenderness Neuro- alert, oriented x 3; PERRL, EOMI; no facial palsy Skin- warm & dry Laboratory Results: Last 24 Hours Test 11/17/16 07:13 11/17/16 07:18 11/17/16 07:26 Bedside Glucose 104 mg/dl Creatine Kinase MB Ratio 0.8 White Blood Count 11.28 K/uL Red Blood Count 3.97 M/uL Hemoglobin 12.5 g/dL Hematocrit 36.0 % Mean Corpuscular Volume 90.7 fL Mean Corpuscular Hemoglobin 31.5 pg Mean Corpuscular Hemoglobin Concent 34.7 g/dl Platelet Count 201 K/uL Mean Platelet Volume 9.2 fL Neutrophils (%) (Auto) 53.8 % Lymphocytes (%) (Auto) 30.6 % Monocytes (%) (Auto) 10.0 % Eosinophils (%) (Auto) 4.8 % Basophils (%) (Auto) 0.4 % Neutrophils # (Auto) 6.08 K/uL Lymphocytes # (Auto) 3.45 K/uL Monocytes # (Auto) 1.13 K/uL Eosinophils # (Auto) 0.54 K/uL Basophils # (Auto) 0.04 K/uL RDW Standard Deviation 43.6 fL RDW Coefficient of Variation 13.1 % Immature Granulocyte % (Auto) 0.4 % Immature Granulocyte # (Auto) 0.04 K/uL Sodium Level 141 mmol/L Potassium Level 3.8 mmol/L Chloride Level 107 mmol/L Carbon Dioxide Level 27 mmol/L Anion Gap 7.0 mmol/L Blood Urea Nitrogen 15 mg/dl Creatinine 1.10 mg/dl Est Creatinine Clear Calc Drug Dose 70.6 ml/min Estimated GFR () 78.4 Estimated GFR (Non- 67.7 BUN/Creatinine Ratio 13.9 Random Glucose 135 mg/dl Calcium Level 8.6 mg/dl Magnesium Level 2.0 mg/dl Total Bilirubin 0.7 mg/dl Aspartate Amino Transf (AST/SGOT) 38 U/L Alanine Aminotransferase (ALT/SGPT) 36 U/L Alkaline Phosphatase 61 U/L Total Creatine Kinase 319 U/L Creatine Kinase MB 2.6 ng/ml Troponin I < 0.015 ng/ml Total Protein 6.7 gm/dl Albumin 3.3 gm/dl Globulin 3.4 gm/dl Albumin/Globulin Ratio 1.0 Thyroid Stimulating Hormone (TSH) 0.726 uIu/ml Assessment & Plan Left Femoral Neck Fracture S/P Mechanical Fall Left Hip Xray showed acute impacted displaced left femoral neck fracture Pain control with morphine case discussed with Dr. Hayward that plan for hip surgery today Pt said that he is very active and was ambulating without assistance. PT has a functional status with a METS greater than a 4. Will undergo an intermediate risk procedure Denies any chest pain, palpitation, dizziness and SOB Pt is medically stable to proceed for surgery. risks briefly discussed with patient such as blood loss, infection, thrombosis, sepsis and even Surgical risks will be discussed in detail by the orthopedic surgeon Continue NPO for surgery today Start on IVF Ortho on board Plan for Left hip hemiarthroplasty 11/17 S/P day#2 Cemented left hip hemiarthroplasty. Continue pain control incentive spirometry drainage out monitor h/h PT/OT DVT Px on SCDS CODE STATUS FULL CODE Disposition Discharge to rehab once medically stable Consultants: Ortho Current Inpatient Medications: Current Inpatient Medications Medications (Trade) Dose Ordered Sig/Deb Route Start Time Stop Time Status Last Admin Dose Admin Acetaminophen (Tylenol Tab) 650 mg Q4H PRN PO 11/14/16 15:30 12/14/16 15:29 11/17/16 19:30 650 MG Ondansetron HCl (Zofran Inj) 4 mg Q6H PRN IV 11/15/16 10:00 12/15/16 09:59 11/17/16 13:51 4 MG Aspirin/Aluminum/ Magnesium/Ca Carb (Ascriptin Tab) 325 mg BID PO 11/16/16 01:00 12/16/16 00:59 11/17/16 08:36 325 MG Hydromorphone HCl (Dilaudid Inj) 0.25 mg Q20M PRN IV 11/15/16 13:15 11/29/16 13:14 Hydromorphone HCl (Dilaudid Inj) 0.5 mg Q20M PRN IV 11/15/16 13:15 11/29/16 13:14 11/16/16 21:45 0.5 MG Senna/Docusate Sodium (Senokot S Tab) 2 tab HS PO 11/15/16 21:00 12/15/16 20:59 11/16/16 22:22 2 TAB Polyethylene (Miralax Powder Packet) 17 gm Q6 PO 11/17/16 06:00 12/17/16 05:59 11/17/16 19:23 17 GM Magnesium Hydroxide (Milk Of Magnesia Susp) 30 ml DAILY PRN PO 11/15/16 13:15 12/15/16 13:14 Bisacodyl (Dulcolax Supp) 10 mg DAILY PRN SC 11/15/16 13:15 12/15/16 13:14 Sodium Biphosphate/ Sodium Phosphate (Fleet Enema) 132 ml ONE PRN SC 11/15/16 13:15 12/15/16 13:14 Hydromorphone HCl (Dilaudid Tab) 2 mg Q4HWA PRN PO 11/15/16 13:15 11/29/16 13:14 11/17/16 05:43 2 MG Tramadol HCl (Ultram Tab) not relieved by tylenol @ Q6H PRN PO 11/17/16 07:45 12/17/16 07:44
[2016-11-17] MEDS: DOCUSATE SODIUM/SENNA 50/8.6MG TAB PO SCH (21:30)
[2016-11-18] VITALS: BP 120/80; PULSE 77; TEMP 36.6; O2SAT 97
[2016-11-18] MEDS: POLYETHYLENE (MIRALAX) 17 GM PACK PO SCH ×3 (00:46→12:00)
[2016-11-18 07:19] LABS: HEMATOCRIT 34.2 % (42-52); MEAN CELL VOLUME 91.2 fL (80-100); MEAN CORPUSCULAR HEMOGLOBIN 31.5 pg (25-34); MEAN CORPUSCULAR HGB CONC 34.5 g/dl (32-36); MEAN PLATELET VOLUME 9.1 fL (7.4-10.4); PLATELET COUNT 200 K/uL (130-400); RED BLOOD COUNT 3.75 M/uL (4.7-6.1); WHITE BLOOD COUNT 7.18 K/uL (4.8-10.8)
--- NOTE | 2016-11-18 07:40 | PROGRESS NOTE ---
DATE: 11/18/2016 CHIEF COMPLAINT: Status post left hip hemiarthroplasty, postop day #3. PROGRESS: Brendan was seen and examined at bedside today. Overall, he is feeling much better. He had a severe pain episode yesterday morning in which he passed out. I was in the room at the time. I did a sternal rub until sancho dean was called and nurses and the medicine doctors arrived. He says that he passes out often when he has significant pain. After that episode, he said he was feeling great. He did have some nausea after lunch. He says he has some discomfort in his hip now, but it is not too bad. He is having some headaches. He has no other complaints. PHYSICAL EXAMINATION: LEFT HIP: The leg lengths are equal. The dressing has been changed and drain has been pulled. IMPRESSION: Status post left hip hemiarthroplasty postop day #3. PLAN: Will continue aspirin 325 mg twice a day for a total of 6 weeks. He can be weightbearing as tolerated. I want to him seen in my office the Wednesday after , which is 2 weeks and 2 days from the day of surgery for staple removal. He is orthopedically stable for [facility] when medically ready.
[2016-11-18 07:51] VITALS: BP 135/84; PULSE 74; TEMP 36.6; O2SAT 96
[2016-11-18] MEDS: TRAMADOL HCL 50 MG TAB PO PRN ×2 (08:51→21:11)
[2016-11-18] MEDS: ASPIRIN/ALUM/MAGNES/CAL CARB 325 MG TAB PO SCH ×2 (08:51→21:10)
--- NOTE | 2016-11-18 09:42 | Progress Note ---
Medicine Progress Note Date & Time of Visit: Nov 18, 2016 at 09:28. Subjective Pt was seen and examined lying in bed comfortable with no discharge Pt said that his pain seems much better He said that he feels some tenderness in his left calf area denies any chest pain palpitation, dizziness and SOB Objective Last 8 Hrs Date Time Temp Pulse Resp B/P (MAP) Pulse Ox O2 Delivery O2 Flow Rate FiO2 11/18/16 07:51 36.6 74 16 135/84 (101) 96 Room Air Physical Exam: General- No acute distress, very pleasant Head- atraumatic Eyes- PERRL, EOMI ENT- oropharynx clear Neck- supple, no JVD Lungs- clear to auscultation Heart- regular rhythm; no murmur Abdomen- normal bowel sounds, soft Extremities- Left calf tenderness with palpation Neuro- alert, oriented x 3; PERRL, EOMI; no facial palsy Skin- warm & dry Laboratory Results: Last 24 Hours Test 11/18/16 06:55 White Blood Count 7.18 K/uL Red Blood Count 3.75 M/uL Hemoglobin 11.8 g/dL Hematocrit 34.2 % Mean Corpuscular Volume 91.2 fL Mean Corpuscular Hemoglobin 31.5 pg Mean Corpuscular Hemoglobin Concent 34.5 g/dl RDW Standard Deviation 43.8 fL RDW Coefficient of Variation 13.2 % Platelet Count 200 K/uL Mean Platelet Volume 9.1 fL Total Creatine Kinase 175 U/L Assessment & Plan Left Femoral Neck Fracture S/P Mechanical Fall Left Hip Xray showed acute impacted displaced left femoral neck fracture Pain control with morphine case discussed with Dr. Hayward that plan for hip surgery today Pt said that he is very active and was ambulating without assistance. PT has a functional status with a METS greater than a 4. Will undergo an intermediate risk procedure Denies any chest pain, palpitation, dizziness and SOB Pt is medically stable to proceed for surgery. risks briefly discussed with patient such as blood loss, infection, thrombosis, sepsis and even Surgical risks will be discussed in detail by the orthopedic surgeon Continue NPO for surgery today Start on IVF Ortho on board Plan for Left hip hemiarthroplasty 11/18 S/P day#3 Cemented left hip hemiarthroplasty. Continue pain control incentive spirometry Hbg stable monitor h/h Continue PT/OT Follow up with dr. Hayward in his office in 2 weeks and 2 days for stable removal continue Aspirin 325 mg for 6 weeks Left Calf Tenderness Will get a doppler to r/o any DVR DVT Px on SCDS On aspirin 325 mg BID CODE STATUS FULL CODE Disposition Waiting for bed to discharge to rehab Follow up with Dr. Hayward on Dec 01 for staple removal Please call your PCP Dr. Kothari once discharge from rehab Consultants: Ortho Procedures: Cemented left hip hemiarthroplasty Current Inpatient Medications: Current Inpatient Medications Medications (Trade) Dose Ordered Sig/Deb Route Start Time Stop Time Status Last Admin Dose Admin Acetaminophen (Tylenol Tab) 650 mg Q4H PRN PO 11/14/16 15:30 12/14/16 15:29 11/17/16 19:30 650 MG Ondansetron HCl (Zofran Inj) 4 mg Q6H PRN IV 11/15/16 10:00 12/15/16 09:59 11/17/16 13:51 4 MG Aspirin/Aluminum/ Magnesium/Ca Carb (Ascriptin Tab) 325 mg BID PO 11/16/16 01:00 12/16/16 00:59 11/18/16 08:51 325 MG Hydromorphone HCl (Dilaudid Inj) 0.25 mg Q20M PRN IV 11/15/16 13:15 11/29/16 13:14 Hydromorphone HCl (Dilaudid Inj) 0.5 mg Q20M PRN IV 11/15/16 13:15 11/29/16 13:14 11/16/16 21:45 0.5 MG Senna/Docusate Sodium (Senokot S Tab) 2 tab HS PO 11/15/16 21:00 12/15/16 20:59 11/17/16 21:30 2 TAB Polyethylene (Miralax Powder Packet) 17 gm Q6 PO 11/17/16 06:00 12/17/16 05:59 11/18/16 05:58 17 GM Magnesium Hydroxide (Milk Of Magnesia Susp) 30 ml DAILY PRN PO 11/15/16 13:15 12/15/16 13:14 Bisacodyl (Dulcolax Supp) 10 mg DAILY PRN GA 11/15/16 13:15 12/15/16 13:14 Sodium Biphosphate/ Sodium Phosphate (Fleet Enema) 132 ml ONE PRN GA 11/15/16 13:15 12/15/16 13:14 Hydromorphone HCl (Dilaudid Tab) 2 mg Q4HWA PRN PO 11/15/16 13:15 11/29/16 13:14 11/17/16 05:43 2 MG Tramadol HCl (Ultram Tab) not relieved by tylenol @ Q6H PRN PO 11/17/16 07:45 12/17/16 07:44 11/18/16 08:51 50 MG
[2016-11-18] MEDS ORDERED: ASPI325T60 PO (09:45)
[2016-11-18] MEDS ORDERED: ULT50X PO (09:45)
--- NOTE | 2016-11-18 09:48 | Discharge Instructions ---
Discharge Instructions Date of Service Nov 18, 2016. Admission Reason for Admission: Hip Fracture, Left Discharge Discharge Diagnosis / Problem: Left Femoral neck fracture Discharge Goals Goal(s): Decrease discomfort, Improve function, Improve disease control Activity Recommendations Activity Limitations: resume your previous activity (weight bearing as tolerated) Weightbearing Status: Left weightbearing (as tolerated) . Instructions / Follow-Up Instructions / Follow-Up Continue aspirin 325 mg twice a day for a total of 6 weeks. Always take Aspirin with a full stomach. Follow up with Dr. Hayward on Dec 01 for staple removal. Follow up with PCP Dr. Kothari once discharged from rehab. Weightbearing as tolerated Continue PT/OT Fall precautions Please refer to accompanying Hospital Discharge summary for full details. Current Hospital Diet Patient's current hospital diet: Regular Diet Discharge Diet Recommended Diet: Regular Diet Procedures Procedures Performed: Left Bipolar Hip Prosthesis Pending Studies Studies pending at discharge: no Medical Emergencies . Who to Call and When: Medical Emergencies: If at any time you feel your situation is an emergency, please call 911 immediately. . Non-Emergent Contact Non-Emergency issues call your: Primary Care Provider Call Non-Emergent contact if: you have a fever, your pain is not controlled, your pain is worsening, wound has increased drainage, wound has increased redness, wound has increased pain, you have any medication questions . . "Provider Documentation" section prepared by Kamala Kuhn. . VTE Core Measure Inpt VTE Proph given/why not?: Other Anticoagulation (aspirin 325mg BID), SCD's
[2016-11-18] MEDS ORDERED: NURSING VERBAL MED ORDER ONE (12:30)
--- NOTE | 2016-11-18 13:38 | DIAGNOSTIC IMAGING REPORT ---
LEFT VENOUS DOPP LOWER EXT UNILAT CLINICAL HISTORY: 71 years-old Male presenting with Left caft tenderness. TECHNIQUE: Real-time grayscale and color and spectral Doppler ultrasound imaging of the veins of the left lower extremity was performed. Compression and augmentation were also utilized. COMPARISON: None. FINDINGS: Left: Common femoral vein: Patent. Femoral vein: Patent. Greater saphenous vein: Patent. Popliteal vein: Patent. Calf veins: Patent. Other: None. IMPRESSION: No evidence of deep venous thrombosis. Electronically signed by: Ajay Bales M.D. 11/18/2016 1:36 PM Dictated Date/Time: 11/18/2016 1:36 PM
[2016-11-18 15:35] VITALS: BP 123/84; PULSE 91; TEMP 37; O2SAT 97
[2016-11-18] MEDS: ACETAMINOPHEN 325 MG TAB PO PRN (16:22)
[2016-11-18] MEDS: DOCUSATE SODIUM/SENNA 50/8.6MG TAB PO SCH (21:10)
[2016-11-18 22:42] VITALS: BP 118/73; PULSE 79; TEMP 36.7; O2SAT 96
[2016-11-19] MEDS: ACETAMINOPHEN 325 MG TAB PO PRN ×2 (05:55→10:29)
[2016-11-19 07:08] VITALS: BP 130/86; PULSE 73; TEMP 36.8; O2SAT 97
[2016-11-19] MEDS: ASPIRIN/ALUM/MAGNES/CAL CARB 325 MG TAB PO SCH (08:13)
[2016-11-19 15:10] VITALS: BP 125/87; PULSE 84; TEMP 36.6; O2SAT 97
--- NOTE | 2016-11-19 15:24 | PROGRESS NOTE ---
DATE: 11/19/2016 DATE: 11/19/2016 CHIEF COMPLAINT: Status post left hip hemiarthroplasty, postoperative day #4. PROGRESS: Brendan was seen and examined at bedside today. Overall, he is doing much better. He was up and walking in the hallways, he was also standing some today. He still has soreness in the hip and it still tires on him but it is improving. PHYSICAL EXAMINATION: LEFT HIP: The dressing is clean and dry. The drain has been pulled. He has a little bit of distention in the area but no ecchymosis. He is neurovascularly intact. His leg lengths are equal. IMPRESSION: Status post left hip hemiarthroplasty, postoperative day #4. PLAN: He continues to do well. He is up and ambulating. He does not feel safe going home. We are trying to get him discharged to [facility]. He does need the acute rehab facility. He is very active. His insurance has denied it, but I am trying to do a peer to peer review which will hopefully come in this afternoon. Orthopedically stable for discharge once we get clearance from his insurance. He will be on aspirin 325 mg twice a day for 6 weeks. I want to see him in the office on Wednesday, December 01 for staple removal.
--- NOTE | 2016-11-19 16:35 | Progress Note ---
Medicine Progress Note Date & Time of Visit: Nov 19, 2016 at 16:30. Subjective patient seen standing in the room, comfortable in good spirits has hip pain, but tolerable left calk pain improved no chest pain, dyspnea, palpitations, dizziness denies other symptoms states he is ready and would like to be discharged today Objective Last 8 Hrs Date Time Temp Pulse Resp B/P (MAP) Pulse Ox O2 Delivery O2 Flow Rate FiO2 11/19/16 15:10 36.6 84 18 125/87 (100) 97 Room Air Physical Exam: General- oriented x 3, not in distress, speaks in sentences with no effort Head- atraumatic Eyes- anicteric Neck- supple, no JVD Lungs- clear breath sounds bilaterally, no rales/wheezes Heart- regular rhythm; no murmur, normal rate Abdomen- soft, nontender Extremities- no pretibial edema, no calf tenderness left hip surgical site: dressing in place, mild swelling, no hematomoa Neuro- alert, oriented x 3;no gross focal deficits Skin- warm & dry Assessment & Plan Left Femoral Neck Fracture S/P Mechanical Fall Left Hip Xray showed acute impacted displaced left femoral neck fracture S/P day#4 Cemented left hip hemiarthroplasty. -- Hg decreased to 11.8 continue to monitor as outpatient -- continue PT/OT in [facility] -- Follow up with Dr. Hayward Ortho on 12/01/16 for staple removal continue Aspirin 325 mg BID for 6 weeks Left Calf Tenderness -- Leg US: no DVT DVT Prophylaxis - on SCDS On aspirin 325 mg BID CODE STATUS FULL CODE Disposition d/c to [facility] Follow up with Dr. Hayward on Dec 01 for staple removal PCP Dr. Kothari once discharge from rehab Consultants: Ortho Procedures: Cemented left hip hemiarthroplasty Current Inpatient Medications: Current Inpatient Medications Medications (Trade) Dose Ordered Sig/Deb Route Start Time Stop Time Status Last Admin Dose Admin Acetaminophen (Tylenol Tab) 650 mg Q4H PRN PO 11/14/16 15:30 12/14/16 15:29 11/19/16 10:29 650 MG Ondansetron HCl (Zofran Inj) 4 mg Q6H PRN IV 11/15/16 10:00 12/15/16 09:59 11/17/16 13:51 4 MG Aspirin/Aluminum/ Magnesium/Ca Carb (Ascriptin Tab) 325 mg BID PO 11/16/16 01:00 12/16/16 00:59 11/19/16 08:13 325 MG Hydromorphone HCl (Dilaudid Inj) 0.25 mg Q20M PRN IV 11/15/16 13:15 11/29/16 13:14 Hydromorphone HCl (Dilaudid Inj) 0.5 mg Q20M PRN IV 11/15/16 13:15 11/29/16 13:14 11/16/16 21:45 0.5 MG Senna/Docusate Sodium (Senokot S Tab) 2 tab HS PO 11/15/16 21:00 12/15/16 20:59 11/18/16 21:10 2 TAB Magnesium Hydroxide (Milk Of Magnesia Susp) 30 ml DAILY PRN PO 11/15/16 13:15 12/15/16 13:14 Bisacodyl (Dulcolax Supp) 10 mg DAILY PRN [place] 11/15/16 13:15 12/15/16 13:14 Sodium Biphosphate/ Sodium Phosphate (Fleet Enema) 132 ml ONE PRN UT 11/15/16 13:15 12/15/16 13:14 Hydromorphone HCl (Dilaudid Tab) 2 mg Q4HWA PRN PO 11/15/16 13:15 11/29/16 13:14 11/17/16 05:43 2 MG Tramadol HCl (Ultram Tab) not relieved by tylenol @ Q6H PRN PO 11/17/16 07:45 12/17/16 07:44 11/18/16 21:11 50 MG
--- NOTE | 2016-11-19 16:48 | Discharge Summary ---
Discharge Summary Date of Service Nov 19, 2016. Discharge Summary Admission Date: Nov 14, 2016 at 15:33 Discharge Date: Nov 18, 2016 Discharge Disposition: Rehab Principal Diagnosis: Left Femoral Neck Fracture S/P Mechanical Fall Secondary Diagnoses/Problems: Please refer to hospital course below. Procedures: Cemented left hip hemiarthroplasty Consultations: Ortho Dr. Hayward Pending Studies/Follow-Up: Please refer to hospital course below. Medication Reconciliation New Medications: Aspirin Buffered (Matt Carb-Mag (Tri-Buffered Aspirin) 1 Tab Tab 325 MG PO BID for 30 Days, TAB Tramadol HCl (Tramadol HCl) 50 Mg Tab 50 MG PO Q6H PRN for Pain for 3 Days, #12 TAB Admission Information HPI (per Admitting provider): 71 year old male with no significant PMH presents to the Emergency Room with complaints of left hip pain after he had a fall. Pt said that he fell while he was climbing a ladder with a balancing light fixture on his head. he said that because of an injury at he had a short right arm.He said that He missed the second step of the ladder and fell on his left side. he said that he was unable to get up because when he trying to move his left hip was very tender. he said that he waited for about an hr until EMS came to get him out of the floor. He did not lose consciousness or hit his head. Pt said that he is very active. he said that this morning he walked the dog. He denies any chest pain, neck pain, palpitation, dizziness, sob, back pain, head pain. Physical Exam (per Admitting): General Appearance: WD/WN, no apparent distress Head: normocephalic, atraumatic Eyes: normal inspection, PERRL, EOMI ENT: hearing grossly normal Neck: no adenopathy, no JVD Respiratory/Chest: lungs clear, normal breath sounds, no respiratory distress Cardiovascular: regular rate, rhythm, no edema, no JVD Abdomen/GI: normal bowel sounds, non tender, soft Back: normal inspection, no CVA tenderness Extremities/Musculoskelatal: no calf tenderness, no pedal edema Neurologic/Psych: alert, normal mood/affect, oriented x 3 Skin: normal color, warm/dry, no rash Hospital Course Left Femoral Neck Fracture S/P Mechanical Fall -- Left Hip Xray showed acute impacted displaced left femoral neck fracture -- S/P day#4 Cemented left hip hemiarthroplasty. -- Hg decreased to 11.8 continue to monitor as outpatient -- stable overall -- continue PT/OT in [facility] -- Follow up with Dr. Hayward Ortho on 12/01/16 for staple removal continue Aspirin 325 mg BID for 6 weeks Left Calf Tenderness -- Leg US: no DVT DVT Prophylaxis - on SCDS On aspirin 325 mg BID CODE STATUS FULL CODE Disposition d/c to [facility] Follow up with Dr. Hayward on Dec 01 for staple removal PCP Dr. Kothari once discharge from rehab Total time spent on discharge = 25 minutes This includes examination of the patient, discharge planning, medication reconciliation, and communication with other providers. Discharge Instructions Discharge Instructions Date of Service Nov 18, 2016. Admission Reason for Admission: Hip Fracture, Left Discharge Discharge Diagnosis / Problem: Left Femoral neck fracture Discharge Goals Goal(s): Decrease discomfort, Improve function, Improve disease control Activity Recommendations Activity Limitations: as noted below (weight bearing as tolerated) Weightbearing Status: Left weightbearing (as tolerated) . Instructions / Follow-Up Instructions / Follow-Up Continue aspirin 325 mg twice a day for a total of 6 weeks. Always take Aspirin with a full stomach. Follow up with Dr. Hayward on Dec 01 for staple removal. Follow up with PCP Dr. Kothari once discharged from rehab. Weightbearing as tolerated Continue PT/OT Fall precautions Please refer to accompanying Hospital Discharge summary for full details. Current Hospital Diet Patient's current hospital diet: Regular Diet Discharge Diet Recommended Diet: Regular Diet Procedures Procedures Performed: Left Bipolar Hip Prosthesis Pending Studies Studies pending at discharge: no Medical Emergencies . Who to Call and When: Medical Emergencies: If at any time you feel your situation is an emergency, please call 911 immediately. . Non-Emergent Contact Non-Emergency issues call your: Primary Care Provider Call Non-Emergent contact if: you have a fever, your pain is not controlled, your pain is worsening, wound has increased drainage, wound has increased redness, wound has increased pain, you have any medication questions . . "Provider Documentation" section prepared by Kamala Kuhn. . VTE Core Measure Inpt VTE Proph given/why not?: Other Anticoagulation (aspirin 325mg BID), SCD's
[2016-11-19 17:12] VITALS: BP 125/87; PULSE 84; TEMP 36.6; O2SAT 97
== END 2016-11-19 18:00 | DRG 470 ==
LOC: EDBD 13:17 → C.EDA 13:20 → C.MSN 15:33 → ENRESERV 16:18
PROVIDERS: ADMIT Internal Medicine; ATTEND Internal Medicine
PROC: 0SRS0J9 Replacement of Left Hip Joint, Femoral Surface with Synthetic Substitute, Cemented, Open Approach (ICD-10-PCS; principal; 2016-11-15 11:00)
DX: S72.142A Displaced intertrochanteric fracture of left femur, initial encounter for closed fracture (principal); W11.XXXA Fall on and from ladder, initial encounter; R55 Syncope and collapse; M79.662 Pain in left lower leg